=== PATIENT | female | born 1985 ===

== ENCOUNTER 2021-03-25 10:44 | Outpatient (CLI) | payer OTHER | END 2021-03-25 11:25 | disposition home or self-care (01) | LOC: PRENATAL 10:44 | PROVIDERS: ATTEND Obstetrics & Gynecology Maternal & Fetal Medicine | DX: Z36.89 Encounter for other specified antenatal screening (principal); O36.80X1 Pregnancy with inconclusive fetal viability, fetus 1; O09.511 Supervision of elderly primigravida, first trimester; Z3A.14 14 weeks gestation of pregnancy ==

== ENCOUNTER 2021-05-13 07:53 | Outpatient (CLI) | payer OTHER | END 2021-05-13 08:45 | disposition home or self-care (01) | LOC: PRENATAL 07:53 | PROVIDERS: ATTEND Obstetrics & Gynecology Maternal & Fetal Medicine | DX: O35.0XX1 Maternal care for (suspected) central nervous system malformation in fetus, fetus 1 (principal); O35.3XX1 Maternal care for (suspected) damage to fetus from viral disease in mother, fetus 1; O98.512 Other viral diseases complicating pregnancy, second trimester; Z36.89 Encounter for other specified antenatal screening; Z3A.21 21 weeks gestation of pregnancy ==